=== PATIENT | male | born 1985 | race Caucasian/White ===

== ENCOUNTER 2017-06-11 15:23 | Emergency (ER) | payer OTHER, SELFPAY ==
[~2017-06-11] VITALS: Ht 175.3 cm; Wt 73.6 kg
[~2017-06-11 15:23] MED LIST: CEPH-357 PO; HYDR1TAB PO; NO HOME MEDS
[2017-06-11 15:51] VITALS: BP 124/81
[2017-06-11] MEDS ORDERED: TETanus/Pertussis (Acell)/Diphther VAC/PF (Tdap-Adult) 0.5ml syringe IM ONE (18:05)
[2017-06-11] MEDS ORDERED: BUPIVAcaine/PF 2.5 mg/ml (0.25%) 30ml vial IJ ONE (18:05)
[2017-06-11] MEDS ORDERED: SULF1TAB49 PO (19:34)
[2017-06-11] MEDS ORDERED: CEPH-572 PO (19:34)
[2017-06-11] MEDS ORDERED: IBUP-1984 PO (19:40)
== END 2017-06-11 19:51 | disposition home or self-care (01) ==
LOC: ER 15:23
DX: L02.511 Cutaneous abscess of right hand (principal); Z98.890 Other specified postprocedural states; Z79.899 Other long term (current) drug therapy
CPT/HCPCS: 26010; 73140; 90471; 90715; 99284; A6266; A6449; J3490

== ENCOUNTER 2017-06-13 17:46 | Inpatient (IN) | payer OTHER ==
[~2017-06-13] VITALS: Ht 175.3 cm; Wt 69.9 kg
[~2017-06-13 17:46] MED LIST changes: +CEPH-572 PO; +IBUP-1984 PO; +SULF1TAB49 PO
[2017-06-13] MEDS ORDERED: vancomycin/NS 1 GM ADD-VANTAGE 250 ML IV ONE (20:15)
[2017-06-13] MEDS ORDERED: CefTRIAXone 2gm/D5W 50ml 50 ML IV ONE (20:15)
[2017-06-13] MEDS ORDERED: normal saline 1000ML IV soln IV ONE (20:15)
[2017-06-13 21:00] LABS: BASOPHILS # (AUTO) 0.1 X10'3 (0-0.2); BASOPHILS % (AUTO) 0.8 % (0-1); EOSINOPHILS # (AUTO) 0.3 X10'3 (0-0.9); EOSINOPHILS % (AUTO) 2.6 % (0-6); HEMOGLOBIN 16.6 g/dl (14.0-17.9); LYMPHOCYTES # (AUTO) 2.2 X10'3 (1.1-4.8); LYMPHOCYTES % (AUTO) 18.6 % (21-51); MEAN CORPUSCULAR HEMOGLOBIN 33.2 PG (27.0-31.0); MEAN CORPUSCULAR HGB CONC 33.9 % (33.0-36.5); MEAN CORPUSCULAR VOLUME 97.9 FL (78-98); MEAN PLATELET VOLUME 8.2 FL (7.4-10.4); MONOCYTES # (AUTO) 0.7 X10'3 (0-0.9); MONOCYTES % (AUTO) 6.4 % (2-12); NEUTROPHILS # (AUTO) 8.3 X10'3 (1.8-7.7); NEUTROPHILS % (AUTO) 71.6 % (42-75); PLATELET COUNT 251 X10'3 (140-440); RED BLOOD COUNT 5.01 X10'6 (4.70-6.10); RED CELL DISTRIBUTION WIDTH 12.8 % (11.5-14.5); WHITE BLOOD COUNT 11.6 X10'3 (4.5-11.0)
[2017-06-13 21:16] LABS: ALANINE AMINOTRANSFERASE 34 U/L (12-78); ALBUMIN 3.9 G/DL (3.4-5.0); ALBUMIN/GLOBULIN RATIO 0.8 (1.1-1.5); ALKALINE PHOSPHATASE 93 IU/L (46-116); ANION GAP 12 (8-16); ASPARTATE AMINO TRANSFERASE 19 U/L (10-37); BILIRUBIN,TOTAL 0.3 MG/DL (0.1-1.0); BLOOD UREA NITROGEN 8 MG/DL (7-18); BUN/CREATININE RATIO 6.9 (5.4-32.0); CALCIUM 9.2 MG/DL (8.5-10.1); CHLORIDE 103 MMOL/L (99-107); CREATININE 1.16 MG/DL (0.60-1.10); GLUCOSE 96 MG/DL (70-104); SODIUM 142 MMOL/L (135-145); TOTAL CARBON DIOXIDE 27.2 MMOL/L (24-32); TOTAL PROTEIN 8.6 G/DL (6.4-8.2); eGFR 73 ML/MIN
[2017-06-13] MEDS ORDERED: ketorolac trometh inj. 60 MG/2 ML VIAL IM ONE (21:40)
[2017-06-13] MEDS ORDERED: morphine 4 MG/ML inj SYRINge IV ONE (22:00)
[2017-06-13] MEDS ORDERED: ondansetron/PF 4mg/2ml inj IV PRN (22:10)
[2017-06-13] MEDS ORDERED: magnesium hydroxide 30ml (MOM) UD suspension PO PRN (22:10)
[2017-06-13] MEDS ORDERED: potassium Cl 40MEQ/NS 500ml 500 ML IV PRN ×2 (22:10)
[2017-06-13] MEDS ORDERED: dronabinol 2.5mg capsule PO PRN ×2 (22:10→22:40)
[2017-06-13] MEDS ORDERED: acetaminophen 325mg tablet PO PRN (22:10)
[2017-06-13] MEDS ORDERED: mag hydrox/Alum hydrox/simeth 30ml oral suspension PO PRN (22:10)
[2017-06-13] MEDS ORDERED: potassium Cl 20 mEq SR tablet PO PRN ×2 (22:10)
[2017-06-13] MEDS ORDERED: magnesium 2GM in 50ml NS 50 ML IV PRN (22:10)
[2017-06-13] MEDS ORDERED: magnesium 4gm in 100ml NS 100 ML IV PRN (22:10)
[2017-06-13] MEDS ORDERED: morphine 4 MG/ML inj SYRINge IV PRN (22:10)
[2017-06-13] MEDS: normal saline 1000ml 1,000 ML IV SCH (22:38)
[2017-06-13 22:45] VITALS: BP 109/78
[2017-06-14] VITALS: BP 114/74
[2017-06-14] MEDS: morphine 4 MG/ML inj SYRINge IV PRN ×3 (03:43→14:35)
[2017-06-14 05:33] LABS: BASOPHILS # (AUTO) 0.1 X10'3 (0-0.2); BASOPHILS % (AUTO) 0.5 % (0-1); EOSINOPHILS # (AUTO) 0.4 X10'3 (0-0.9); EOSINOPHILS % (AUTO) 3.3 % (0-6); HEMATOCRIT 42.5 % (42.0-52.0); HEMOGLOBIN 14.1 g/dl (14.0-17.9); LYMPHOCYTES # (AUTO) 2.3 X10'3 (1.1-4.8); LYMPHOCYTES % (AUTO) 21.5 % (21-51); MEAN CORPUSCULAR HEMOGLOBIN 32.3 PG (27.0-31.0); MEAN CORPUSCULAR HGB CONC 33.2 % (33.0-36.5); MEAN CORPUSCULAR VOLUME 97.4 FL (78-98); MEAN PLATELET VOLUME 9.2 FL (7.4-10.4); MONOCYTES # (AUTO) 0.6 X10'3 (0-0.9); MONOCYTES % (AUTO) 5.8 % (2-12); NEUTROPHILS # (AUTO) 7.2 X10'3 (1.8-7.7); NEUTROPHILS % (AUTO) 68.9 % (42-75); PLATELET COUNT 214 X10'3 (140-440); RED BLOOD COUNT 4.36 X10'6 (4.70-6.10); RED CELL DISTRIBUTION WIDTH 12.1 % (11.5-14.5); WHITE BLOOD COUNT 10.6 X10'3 (4.5-11.0)
[2017-06-14 06:10] LABS: ANION GAP 10 (8-16); BILIRUBIN,TOTAL 0.3 MG/DL (0.1-1.0); BLOOD UREA NITROGEN 7 MG/DL (7-18); BUN/CREATININE RATIO 7.7 (5.4-32.0); CALCIUM 8.1 MG/DL (8.5-10.1); CHLORIDE 110 MMOL/L (99-107); CREATININE 0.91 MG/DL (0.60-1.10); GLUCOSE 93 MG/DL (70-104); MAGNESIUM 1.9 MG/DL (1.5-2.4); POTASSIUM 3.8 MMOL/L (3.5-5.1); SODIUM 143 MMOL/L (135-145); TOTAL CARBON DIOXIDE 23.3 MMOL/L (24-32); eGFR > 90 ML/MIN
[2017-06-14 06:11] LABS: ALANINE AMINOTRANSFERASE 27 U/L (12-78); ALBUMIN 2.9 G/DL (3.4-5.0); ALBUMIN/GLOBULIN RATIO 0.8 (1.1-1.5); ALKALINE PHOSPHATASE 72 IU/L (46-116); ASPARTATE AMINO TRANSFERASE 18 U/L (10-37); TOTAL PROTEIN 6.6 G/DL (6.4-8.2)
[2017-06-14 07:00] VITALS: BP 117/82
[2017-06-14] MEDS: CefTRIAXone 2gm/D5W 50ml 50 ML IV SCH (07:47)
[2017-06-14] MEDS: K and/or MAG REPLACEMENT MC SCH (08:00)
[2017-06-14 08:33] LABS: INR 0.9 INR; PROTHROMBIN TIME 9.4 SECONDS (9.0-12.0)
[2017-06-14 11:00] VITALS: BP 113/65
[2017-06-14 12:00] VITALS: BP 113/65
[2017-06-14] MEDS ORDERED: LIDOcaine 1% 30ml preserv. free vial SQ STA (13:44)
[2017-06-14] MEDS: normal saline 1000ml 1,000 ML IV SCH (14:26)
[2017-06-14] MEDS ORDERED: morphine 4 MG/ML inj SYRINge IV ONE (15:05)
[2017-06-14] MEDS: vancomycin/NS 1 GM ADD-VANTAGE 250 ML IV SCH (17:06)
[2017-06-14 19:20] VITALS: BP 124/76
[2017-06-14] MEDS: HYDROcodone/acetaminophen 10/325mg tab PO PRN (19:49)
[2017-06-14] MEDS: lactobacillus rhamnosus 10,000 MMU CELLS/CAPSULE PO SCH (19:50)
[2017-06-15] VITALS: BP 128/80
[2017-06-15] MEDS: HYDROcodone/acetaminophen 10/325mg tab PO PRN ×4 (01:09→20:15)
[2017-06-15] MEDS: normal saline 1000ml 1,000 ML IV SCH ×3 (01:13→15:34)
[2017-06-15] MEDS: vancomycin/NS 1 GM ADD-VANTAGE 250 ML IV SCH ×4 (01:17→17:11)
[2017-06-15 05:32] LABS: BASOPHILS # (AUTO) 0.1 X10'3 (0-0.2); BASOPHILS % (AUTO) 0.7 % (0-1); EOSINOPHILS # (AUTO) 0.4 X10'3 (0-0.9); EOSINOPHILS % (AUTO) 3.6 % (0-6); HEMATOCRIT 42.1 % (42.0-52.0); HEMOGLOBIN 14.7 g/dl (14.0-17.9); LYMPHOCYTES # (AUTO) 2.2 X10'3 (1.1-4.8); LYMPHOCYTES % (AUTO) 20.7 % (21-51); MEAN CORPUSCULAR HEMOGLOBIN 33.9 PG (27.0-31.0); MEAN CORPUSCULAR VOLUME 96.7 FL (78-98); MEAN PLATELET VOLUME 8.6 FL (7.4-10.4); MONOCYTES # (AUTO) 0.8 X10'3 (0-0.9); MONOCYTES % (AUTO) 7.5 % (2-12); NEUTROPHILS # (AUTO) 7.3 X10'3 (1.8-7.7); NEUTROPHILS % (AUTO) 67.5 % (42-75); PLATELET COUNT 248 X10'3 (140-440); RED BLOOD COUNT 4.35 X10'6 (4.70-6.10); RED CELL DISTRIBUTION WIDTH 12.6 % (11.5-14.5); WHITE BLOOD COUNT 10.8 X10'3 (4.5-11.0)
[2017-06-15 05:55] LABS: ALANINE AMINOTRANSFERASE 23 U/L (12-78); ALBUMIN/GLOBULIN RATIO 0.8 (1.1-1.5); ALKALINE PHOSPHATASE 76 IU/L (46-116); ANION GAP 10 (8-16); ASPARTATE AMINO TRANSFERASE 16 U/L (10-37); BILIRUBIN,TOTAL 0.4 MG/DL (0.1-1.0); BLOOD UREA NITROGEN 7 MG/DL (7-18); BUN/CREATININE RATIO 7.2 (5.4-32.0); CALCIUM 8.6 MG/DL (8.5-10.1); CHLORIDE 106 MMOL/L (99-107); CREATININE 0.97 MG/DL (0.60-1.10); GLUCOSE 102 MG/DL (70-104); MAGNESIUM 1.9 MG/DL (1.5-2.4); POTASSIUM 3.7 MMOL/L (3.5-5.1); SODIUM 142 MMOL/L (135-145); TOTAL CARBON DIOXIDE 25.8 MMOL/L (24-32); eGFR 89 ML/MIN
[2017-06-15] MEDS: CefTRIAXone 2gm/D5W 50ml 50 ML IV SCH (07:23)
[2017-06-15 07:30] VITALS: BP 110/69
[2017-06-15] MEDS: K and/or MAG REPLACEMENT MC SCH (08:00)
[2017-06-15] MEDS: lactobacillus rhamnosus 10,000 MMU CELLS/CAPSULE PO SCH ×2 (08:18→20:15)
[2017-06-15 11:00] VITALS: BP 115/69
[2017-06-15] MEDS ORDERED: VANCOMYCIN LEVEL IV NR (16:30)
[2017-06-15 19:30] VITALS: BP 123/72
[2017-06-16 00:09] VITALS: BP 117/70
[2017-06-16] MEDS: HYDROcodone/acetaminophen 10/325mg tab PO PRN ×2 (00:35→04:50)
[2017-06-16] MEDS: vancomycin/NS 1 GM ADD-VANTAGE 250 ML IV SCH (00:35)
[2017-06-16] MEDS: normal saline 1000ml 1,000 ML IV SCH ×2 (04:49→10:08)
[2017-06-16 05:46] LABS: BASOPHILS # (AUTO) 0.1 X10'3 (0-0.2); BASOPHILS % (AUTO) 0.8 % (0-1); EOSINOPHILS # (AUTO) 0.6 X10'3 (0-0.9); EOSINOPHILS % (AUTO) 7.3 % (0-6); HEMATOCRIT 40.7 % (42.0-52.0); HEMOGLOBIN 14.3 g/dl (14.0-17.9); LYMPHOCYTES # (AUTO) 2.6 X10'3 (1.1-4.8); LYMPHOCYTES % (AUTO) 32.4 % (21-51); MEAN CORPUSCULAR HEMOGLOBIN 33.8 PG (27.0-31.0); MEAN CORPUSCULAR HGB CONC 35.3 % (33.0-36.5); MEAN CORPUSCULAR VOLUME 95.8 FL (78-98); MEAN PLATELET VOLUME 8.1 FL (7.4-10.4); MONOCYTES # (AUTO) 0.7 X10'3 (0-0.9); NEUTROPHILS # (AUTO) 4.1 X10'3 (1.8-7.7); NEUTROPHILS % (AUTO) 50.5 % (42-75); PLATELET COUNT 246 X10'3 (140-440); RED BLOOD COUNT 4.24 X10'6 (4.70-6.10); RED CELL DISTRIBUTION WIDTH 12.4 % (11.5-14.5); WHITE BLOOD COUNT 8.1 X10'3 (4.5-11.0)
[2017-06-16 06:11] LABS: ALANINE AMINOTRANSFERASE 28 U/L (12-78); ALBUMIN/GLOBULIN RATIO 0.8 (1.1-1.5); ALKALINE PHOSPHATASE 67 IU/L (46-116); ANION GAP 10 (8-16); ASPARTATE AMINO TRANSFERASE 19 U/L (10-37); BILIRUBIN,TOTAL 0.3 MG/DL (0.1-1.0); BLOOD UREA NITROGEN 10 MG/DL (7-18); BUN/CREATININE RATIO 11.8 (5.4-32.0); CALCIUM 8.6 MG/DL (8.5-10.1); CHLORIDE 107 MMOL/L (99-107); CREATININE 0.85 MG/DL (0.60-1.10); GLUCOSE 94 MG/DL (70-104); POTASSIUM 3.8 MMOL/L (3.5-5.1); SODIUM 143 MMOL/L (135-145); TOTAL PROTEIN 6.7 G/DL (6.4-8.2); eGFR > 90 ML/MIN
[2017-06-16] MEDS: lactobacillus rhamnosus 10,000 MMU CELLS/CAPSULE PO SCH (07:10)
[2017-06-16] MEDS: CefTRIAXone 2gm/D5W 50ml 50 ML IV SCH (07:10)
[2017-06-16] MEDS: K and/or MAG REPLACEMENT MC SCH (07:15)
[2017-06-16 07:16] VITALS: BP 115/68
[2017-06-16] MEDS ORDERED: vancomycin inj 1,250 MG in normal saline 250ml IV soln 250 ML IV SCH (09:00)
[2017-06-16] MEDS ORDERED: LEVO500T2 PO (09:47)
[2017-06-16] MEDS ORDERED: DOXY100C43 PO (09:47)
[2017-06-16] MEDS ORDERED: LIDO30CR23 TOP (10:26)
[2017-06-16 11:50] VITALS: BP 121/82
[2017-06-17] MEDS ORDERED: VANCOMYCIN LEVEL IV ONE (08:30)
== END 2017-06-16 12:40 | disposition home or self-care (01) | DRG 872 ==
LOC: ER 17:47 → ED HOLD 22:08 → SUR 3N 22:54
PROVIDERS: ADMIT Family Medicine; ATTEND Legal Medicine
PROC: 0HBFXZZ Excision of Right Hand Skin, External Approach (ICD-10-PCS; principal; 2017-06-14)
DX: A41.9 Sepsis, unspecified organism (principal); F12.90 Cannabis use, unspecified, uncomplicated; L02.511 Cutaneous abscess of right hand; M12.241 Villonodular synovitis (pigmented), right hand; Z79.899 Other long term (current) drug therapy
CPT/HCPCS: 36415; 80053; 80202; 83605; 83735; 85025; 85610; 85651; 87040; 87070; 96365; 99285; A6266; A6449; J0696; J2270; J3370; J3490; J7030; Q0167